=== PATIENT | female | born 1970 | race Caucasian/White ===

== ENCOUNTER 2017-12-18 05:31 | Day surgery (SDC) | payer OTHER ==
[~2017-12-18] VITALS: Ht 165.1 cm; Wt 66.2 kg
[2017-12-18 05:40] VITALS: BP 113/60
[2017-12-18 06:07] LABS: BASOPHIL (%) 0.9 % (0-1); BASOPHIL COUNT 0.1 K/uL (0-0.1); EOSINOPHIL (%) 3.6 % (0-5); EOSINOPHIL COUNT 0.2 K/uL (0-0.3); HEMATOCRIT 34.5 % (36.0-46.0); HEMOGLOBIN 11.6 G/DL (11.9-15.5); IMMATURE GRANULOCYTE (%) 0.2 % (0.0-0.7); LYMPHOCYTE (%) 27.5 % (15-42); LYMPHOCYTE COUNT 1.5 K/uL (1.0-2.8); MCH 30.5 PG (29.0-34.0); MCHC 33.6 G/DL (30.0-36.0); MCV 90.8 FL (83-99); MONOCYTE (%) 11.1 % (3-12); MONOCYTE COUNT 0.6 K/uL (0-0.8); NEUTROPHIL (%) 56.7 % (45-76); NEUTROPHIL COUNT 3.2 K/uL (1.8-6.4); PLATELET COUNT 169 K/uL (156-360); RBC DIS.WIDTH-CV 13.3 % (11.8-14.6); RBC DIS.WIDTH-SD 44.1 % (39-53); WHITE BLOOD COUNT 5.6 K/uL (4.1-10.2)
[2017-12-18] MEDS ORDERED: ENDOCET 5-3251 EACH PO (09:53)
[2017-12-18] MEDS ORDERED: IBUPROFEN800 MG PO (09:53)
[2017-12-18 11:10] VITALS: BP 99/63
[2017-12-18 12:30] VITALS: BP 96/56
[2017-12-18 14:10] VITALS: BP 113/55
[2017-12-18 15:50] VITALS: BP 97/55
[2017-12-18 16:37] LABS: HEMOGLOBIN 10.8 G/DL (11.9-15.5); MCV 90.9 FL (83-99)
[2017-12-18 16:55] VITALS: BP 107/56
== END 2017-12-18 17:00 | disposition home or self-care (01) ==
LOC: SDC 05:31
PROVIDERS: Obstetrics & Gynecology
DX: D25.9 Leiomyoma of uterus, unspecified (principal); N80.0 Endometriosis of uterus; N83.8 Other noninflammatory disorders of ovary, fallopian tube and broad ligament; N83.11 Corpus luteum cyst of right ovary
CPT/HCPCS: 84702; 85014; 85018; 85025; 86850; 86900; 86901; 88307; J0131; J0690; J1100; J1170; J2250; J2405; J2710; J3010; J7643